=== PATIENT | male | born 1980 | race Caucasian/White ===

== ENCOUNTER 2016-12-06 06:21 | Emergency (ER) | payer BC, SELFPAY ==
[~2016-12-06 06:21] MED LIST: /ADVA50050; /MOXI40TA; /PANT40TA; DUONSOL; PRED10TA2; PRED20TA; ROBITUSSIN; VENTAER; ZYRT10TA6
[2016-12-06 07:03] LABS: BASO # 0.1 K/mm3 (0.0-0.2); BASO % 1.3 % (0.0-1.0); EOS # 0.1 K/mm3 (0.0-0.50); EOS % 1.9 % (0.0-3.0); LARGE UNSTAINED CELL # 0.1 K/mm3 (0.0-0.4); LARGE UNSTAINED CELL % 1.6 % (0.0-4.0); LYMPH # 1.6 K/mm3 (1.5-4.5); LYMPH % 23.3 % (24.0-44.0); MEAN CORPUSCULAR HEMOGLOBIN 29.4 pg (27.0-33.0); MEAN CORPUSCULAR HGB CONC 32.5 g/dl (32.0-36.5); MEAN CORPUSCULAR VOLUME 90.7 fl (80.0-96.0); MONO # 0.3 K/mm3 (0.0-0.8); MONO % 4.3 % (0.0-5.0); NEUTROPHILS # 4.3 K/mm3 (1.8-7.7); NEUTROPHILS % 67.6 % (36.0-66.0); PLATELET COUNT, AUTOMATED 195 k/mm3 (150-450); RED CELL DISTRIBUTION WIDTH 13.2 % (11.5-14.5); WHITE BLOOD COUNT 6.4 K/mm3 (4.0-10.0)
[2016-12-06] MEDS ORDERED: dexameTHASONE 20 MG/5 ML VIAL (J1100) As Ordered ONE (07:13)
--- NOTE | 2016-12-06 07:20 | REP ---
Clinical: Acute shortness of breath . Comparison: 11/06/2009 . Technique: PA and lateral. Findings: The mediastinum and cardiac silhouette are normal. The lung monge are clear and without acute consolidation, effusion, or pneumothorax. The skeletal structures are intact and normal. Impression: 1. No acute cardiopulmonary process. Signed by Nicolás Daily MD 12/06/2016 07:11 A
[2016-12-06 07:23] LABS: ANION GAP 7 MEQ/L (8-16); BLOOD UREA NITROGEN 18 MG/DL (7-18); CALCIUM LEVEL 8.5 MG/DL (8.5-10.1); CARBON DIOXIDE LEVEL 29 MEQ/L (21-32); CHLORIDE LEVEL 107 MEQ/L (98-107); CREATININE FOR GFR 0.99 MG/DL (0.70-1.30); GLOMERULAR FILTRATION RATE > 60.0 (>60); GLUCOSE, FASTING 98 MG/DL (70-105); POTASSIUM SERUM 3.6 MEQ/L (3.5-5.1); SODIUM LEVEL 143 MEQ/L (136-145)
[2016-12-06] MEDS ORDERED: IPRATROPIUM 0.5MG/ALBUTEROL 2.5MG INH SOL UD 3ML (DUONEB)(J7620) As Ordered ONE (08:02)
--- NOTE | 2016-12-06 09:49 | EDDOCDS ---
Physician Documentation [facility] Name: Kemal Lai Age: 36 yrs Sex: Male : 1980 Arrival Date: 12/06/2016 Time: 06:21 Bed 8 Private MD: Mohan Bardales Disposition: 12/06/16 09:28 Discharged to Home/Self Care. Impression: Mild intermittent asthma with (acute) exacerbation. - Condition is Stable. - Discharge Instructions: Asthma, Adult, Asthma, Acute Bronchospasm. - Prescriptions for Zithromax Z- Benjamin 250 mg Oral Tablet - take 1 tablet by ORAL route as directed for 5 days Day 1- take two tablets once. Day 2, 3, 4 , 5 take one tablet once daily.; 6 tablet. - Medication Reconciliation, Work Release Form - 2 day, Local Pharmacy Hours form. - Follow up: Mohan Bardales; When: Tomorrow; Reason: Recheck today's complaints. - Problem is an acute exacerbation. - Symptoms have improved. Historical: - Allergies: No known drug Allergies; - Home Meds: 1. ipratropium-albuterol 0.5 mg-3 mg(2.5 mg base)/3 mL Inhl nebu as needed 2. Ventolin Rotahaler/Rotacaps 200 mcg Inhl CpDv 3. Protonix 20 mg Oral TbEC as needed - PMHx: Asthma; Lupus; GERD; - PSHx: Vasectomy; - Social history: Smoking status: Patient states was never smoker of tobacco. No barriers to communication noted, The patient speaks fluent Australian, Speaks appropriately for age. - Family history: Not pertinent. - : The pt / caregiver states he / she is not on anticoagulants. Home medication list is obtained from the patient. - Exposure Risk Screening:: None identified. Vital Signs: 12/06 06:26 BP 129 / 72; Pulse 81; Resp 24; Temp 97.3(TE); Pulse Ox 95% on R/A; Weight 113.4 kg / js15 250 lbs; Height 5 ft. 10 in. (177.80 cm); 09:48 BP 129 / 59; Pulse 79; Resp 18; Temp 97.5(O); Pulse Ox 95% on R/A; Pain 0/10; hs1 06:26 Body Mass Index 35.87 (113.40 kg, 177.80 cm) js15 MDM: 06:47 IV Saline Lock ordered. cs11 06:47 Dexamethasone 12 mg IV at bolus once ordered. cs11 06:47 Albuterol-Ipratropium 3 ml Inhalation once ordered. cs11 06:47 Call Respiratory ordered. cs11 06:47 -Blood Culture (Adults Only), peripheral from different site, or from device/port/PICC cs11 etc. if present ordered. 06:47 Financial registration complete. hs2 06:47 [facility] Payment Agreement was scanned into [employer] and attached to record. hs2 06:47 Chest, 2 View (pa\E\lat) Ordered. EDMS 06:48 CBC with Diff Ordered. EDMS 06:48 MED Profile Ordered. EDMS 06:48 -Blood Culture Ordered. EDMS 06:54 -Blood Culture (Adults Only), peripheral from different site, or from device/port/PICC tmm1 etc. if present complete. 06:55 BLOOD CULTURES Ordered. EDMS 06:55 Call Respiratory complete. tmm1 07:09 CBC with Diff Reviewed. sd1 07:42 MED Profile Reviewed. sd1 07:42 Chest, 2 View (pa\E\lat) Reviewed. sd1 08:17 Misc. Nursing Order ordered. sd1 Administered Medications: 07:33 Drug: Dexamethasone 12 mg [dexamethasone 4 mg/mL injection solution] Route: IV; Rate: hs1 bolus; Site: left antecubital; 08:09 Drug: Albuterol-Ipratropium 3 ml [ipratropium-albuterol 0.5 mg-3 mg(2.5 mg base)/3 mL cs15 nebulization soln (3 mL)] Route: Inhalation; Signatures: Dispatcher [employer] EDFL Maura Colindres MD MD sd1 Sadie Cisneros RN RN hs1 Justin Yoon DO DO cs11 Angelique Collado, COMPOSING MACHINE OPERATOR COMPOSING MACHINE OPERATOR tmm1 Chrissy Gardiner,JIAN RN js15 Dary Almaraz, Reg Reg hs2 Trung Desir RT cs15 The chart was reviewed and I authenticate all verbal orders and agree with the evaluation and treatment provided.Attachments: 06:47 [facility] Payment Agreement hs2 MTDD
--- NOTE | 2016-12-06 09:49 | EDDOCDS ---
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 Adult Sepsis Screening: The patient does not have new or worsening altered mentation. Patient has a respiratory rate of greater than or equal to 22 (1 point). Systolic blood pressure is greater than 100. Patient has a qSOFA score of 1- Negative Sepsis Screen. Suicide/Homicide risk assessment- the patient denies having any suicidal and/or homicidal ideations and does not present with any other emotional, behavioral or mental health complaints. Status: Patient is not a banking services clerk or dependent. Transition of care: patient was not received from another setting of care. 06:27 Acuity: JENIFER Level 3 15 06:27 Method Of Arrival: Walkin/Carried/Asstd 15 Triage Assessment: 06:30 General: Appears uncomfortable. Pain: Aggravated by breathing. HIV screening NA for js15 this visit Offered previously. Respiratory: Onset: The symptoms/episode began/occurred 0000 Prior to arrival, Airway is patent Respiratory effort is even, unlabored, Respiratory pattern is regular, symmetrical. Derm: Skin is pink, warm & dry. Historical: - Allergies: No known drug Allergies; - Home Meds: 1. ipratropium-albuterol 0.5 mg-3 mg(2.5 mg base)/3 mL Inhl nebu as needed 2. Ventolin Rotahaler/Rotacaps 200 mcg Inhl CpDv 3. Protonix 20 mg Oral TbEC as needed - PMHx: Asthma; Lupus; GERD; - PSHx: Vasectomy; - Social history: Smoking status: Patient states was never smoker of tobacco. No barriers to communication noted, The patient speaks fluent Maori, Speaks appropriately for age. - Family history: Not pertinent. - : The pt / caregiver states he / she is not on anticoagulants. Home medication list is obtained from the patient. - Exposure Risk Screening:: None identified. Screenin:53 Screening information is obtained from the patient. Fall risk: No risks identified. hs1 Assistance ADL's: requires no assistance with activities of daily living. Abuse/DV Screen: The patient / caregiver reports he/she is: not in a situation that causes fear, pain or injury. Nutritional screening: No deficits noted. Advance Directives: There is no active DNR order. home support is adequate. Assessment: 06:39 General: Appears uncomfortable. Neurological: Level of Consciousness is awake, alert, nn1 obeys commands. Cardiovascular: Capillary refill < 3 seconds. Respiratory: Airway is patent Respiratory effort is even, unlabored, Respiratory pattern is regular, symmetrical, Breath sounds are diminished bilaterally. Reports shortness of breath since 0000. Reports pain with deep inspiration, pain is diffuse throughout chest and back. cough that is. Derm: Skin is pink, warm & dry. 06:55 General: Patient reports cold symptoms x 2 weeks including cough, congestion and body nn1 aches. Patient seen at urgent care at that time, given antibiotics with no relief. . 07:15 General: Appears in no apparent distress, Behavior is appropriate for age, cooperative. hs1 Neurological: Level of Consciousness is awake, alert, obeys commands. Cardiovascular: Rhythm is sinus rhythm No ectopy. Respiratory: Respiratory pattern is. Respiratory: Airway is patent Breath sounds are diminished bilaterally. Breath sounds with wheezes bilaterally. Derm: Skin is pink, warm & dry. 08:45 General: Ambulated patient around hallway monitoring SPO2. Patient sats dropped down to hs1 90% at lowest and patient states he feels slightly SOB and that he feels "crackling and popping and the inflammation" in his chest when he walked. . Respiratory: Airway is patent Respiratory effort is even, unlabored, Respiratory pattern is regular, symmetrical. 09:47 Reassessment: Patient appears in no apparent distress at this time. Patient denies pain hs1 at this time. Patient states feeling better. Patient states symptoms have improved. Respiratory: No deficits noted. Airway is patent Respiratory effort is even, unlabored, Respiratory pattern is regular, symmetrical, Breath sounds are diminished bilaterally. Derm: Skin is pink, warm & dry. normal. Vital Signs: 06:26 BP 129 / 72; Pulse 81; Resp 24; Temp 97.3(TE); Pulse Ox 95% on R/A; Weight 113.4 kg; js15 Height 5 ft. 10 in. (177.80 cm); 09:48 BP 129 / 59; Pulse 79; Resp 18; Temp 97.5(O); Pulse Ox 95% on R/A; Pain 0/10; hs1 06:26 Body Mass Index 35.87 (113.40 kg, 177.80 cm) js15 Vitals: 06:26 Log In Time: December 06, 2016 at 06:21. js15 ED Course: 06:22 Patient visited by Kemal Atkins Reg. pm4 06:22 Mohan Bardales is Private Physician. pm4 06:22 Patient moved to Waiting pm4 06:29 Triage Initiated js15 06:32 Patient moved to 8 js15 06:36 Justin Yoon DO is Attending Physician. cs11 06:36 Patient visited by Justin Yoon DO. cs11 06:47 [facility] Payment Agreement was scanned into [employer] and attached to record. hs2 06:52 Patient moved to Radiology marysol 06:55 MED Profile Sent. nn1 06:55 CBC with Diff Sent. nn1 06:55 -Blood Culture Sent. nn1 06:56 Inserted saline lock: 20 gauge in left antecubital area and blood collected. The nn1 patient tolerated the procedure well. Labs/Blood culture drawn. 06:58 Attending Physician role handed off by Justin Yoon DO sd1 06:58 Maura Colindres MD is Attending Physician. sd1 06:59 Patient moved to 8 marysol 07:19 Patient visited by Vincenzo Dumont RN. mlb1 07:33 Chest, 2 View (pa\\E\\lat) Returned. EDMS 07:33 BLOOD CULTURES Sent. hs1 07:52 Patient visited by Sadie Cisneros RN. hs1 07:53 The patient / caregiver is instructed regarding the plan of care and ED course. hs1 08:32 Patient visited by Sadie Cisneros RN. hs1 09:28 Mohan Bardales is Referral Physician. sd1 09:47 Discontinued IV lock intact, bleeding controlled, pressure dressing applied, No hs1 redness/swelling at site. No procedures done that require assistance. Administered Medications: 07:33 Drug: Dexamethasone 12 mg [dexamethasone 4 mg/mL injection solution] Route: IV; Rate: hs1 bolus; Site: left antecubital; 08:09 Drug: Albuterol-Ipratropium 3 ml [ipratropium-albuterol 0.5 mg-3 mg(2.5 mg base)/3 mL cs15 nebulization soln (3 mL)] Route: Inhalation; RT: 08:10 Initial Med Neb Given as ordered. Respiratory: Respiratory effort is unlabored, cs15 Respiratory pattern is regular Breath sounds with crackles bilaterally. Reports he feels like he can't get the air out very well which is suggestive of air trapping. He feels very inflammed. 08:24 O2 via nasal cannula \\T\\ 2L/min. cs15 Order Results: Lab Order: CBC with Diff; SPEC'M 12/06/16 06:53 Test: WHITE BLOOD COUNT; Value: 6.4; Range: 4.0-10.0; Units: K/mm3; Status: F Test: RED BLOOD COUNT; Value: 4.94; Range: 4.30-6.10; Units: M/mm3; Status: F Test: HEMOGLOBIN; Value: 14.5; Range: 14.0-18.0; Units: g/dl; Status: F Test: HEMATOCRIT; Value: 44.8; Range: 42.0-52.0; Units: %; Status: F Test: MEAN CORPUSCULAR VOLUME; Value: 90.7; Range: 80.0-96.0; Units: fl; Status: F Test: MEAN CORPUSCULAR HEMOGLOBIN; Value: 29.4; Range: 27.0-33.0; Units: pg; Status: F Test: MEAN CORPUSCULAR HGB CONC; Value: 32.5; Range: 32.0-36.5; Units: g/dl; Status: F Test: RED CELL DISTRIBUTION WIDTH; Value: 13.2; Range: 11.5-14.5; Units: %; Status: F Test: PLATELET COUNT, AUTOMATED; Value: 195; Range: 150-450; Units: k/mm3; Status: F Test: NEUTROPHILS %; Value: 67.6; Range: 36.0-66.0; Abnormal: Above high normal; Units: %; Status: F Test: LYMPH %; Value: 23.3; Range: 24.0-44.0; Abnormal: Below low normal; Units: %; Status: F Test: MONO %; Value: 4.3; Range: 0.0-5.0; Units: %; Status: F Test: EOS %; Value: 1.9; Range: 0.0-3.0; Units: %; Status: F Test: BASO %; Value: 1.3; Range: 0.0-1.0; Abnormal: Above high normal; Units: %; Status: F Test: LARGE UNSTAINED CELL %; Value: 1.6; Range: 0.0-4.0; Units: %; Status: F Test: NEUTROPHILS #; Value: 4.3; Range: 1.8-7.7; Units: K/mm3; Status: F Test: LYMPH #; Value: 1.6; Range: 1.5-4.5; Units: K/mm3; Status: F Test: MONO #; Value: 0.3; Range: 0.0-0.8; Units: K/mm3; Status: F Test: EOS #; Value: 0.1; Range: 0.0-0.50; Units: K/mm3; Status: F Test: BASO #; Value: 0.1; Range: 0.0-0.2; Units: K/mm3; Status: F Test: LARGE UNSTAINED CELL #; Value: 0.1; Range: 0.0-0.4; Units: K/mm3; Status: F Lab Order: [facility] Profile; SPEC'M 12/06/16 06:52 Test: GLUCOSE, FASTING; Value: 98; Range: 70-105; Units: MG/DL; Status: F Test: BLOOD UREA NITROGEN; Value: 18; Range: 7-18; Units: MG/DL; Status: F Test: CREATININE FOR GFR; Value: 0.99; Range: 0.70-1.30; Units: MG/DL; Status: F Test: GLOMERULAR FILTRATION RATE; Value: > 60.0; Range: >60; Status: F Test: SODIUM LEVEL; Value: 143; Range: 136-145; Units: MEQ/L; Status: F Test: POTASSIUM SERUM; Value: 3.6; Range: 3.5-5.1; Units: MEQ/L; Status: F Test: CHLORIDE LEVEL; Value: 107; Range: 98-107; Units: MEQ/L; Status: F Test: CARBON DIOXIDE LEVEL; Value: 29; Range: 21-32; Units: MEQ/L; Status: F Test: ANION GAP; Value: 7; Range: 8-16; Abnormal: Below low normal; Units: MEQ/L; Status: F Test: CALCIUM LEVEL; Value: 8.5; Range: 8.5-10.1; Units: MG/DL; Status: F Test Note: ; Units are mL/min/1.73 m2 Chronic Kidney Disease Staging per NKF: Stage I & II GFR >=60 Normal to Mildly Decreased Stage III GFR 30-59 Moderately Decreased Stage IV GFR 15-29 Severely Decreased Stage V GFR <15 Very Little GFR Left ESRD GFR <15 on PRINCIPAL ARCHAEOLOGIST Radiology Order: Chest, 2 View (pa\\E\\lat) Test: Chest, 2 View (pa\\E\\lat) REASON FOR EXAMINATION: Shortness of Breath; Clinical: Acute shortness of breath .; ; Comparison: 11/06/2009 .; ; Technique: PA and lateral.; ; Findings:; The mediastinum and cardiac silhouette are normal. The lung monge are clear and; without acute consolidation, effusion, or pneumothorax. The skeletal structures; are intact and normal.; ; Impression:; 1. No acute cardiopulmonary process.; ; ; Signed by; Nicolás Daily MD 12/06/2016 07:11 A; Outcome: 09:28 Discharge ordered by Provider. sd1 09:47 Discharge Assessment: Patient awake, alert and oriented x 3. No cognitive and/or hs1 functional deficits noted. Patient verbalized understanding of disposition instructions. patient administered narcotics - no. The following High Risk Discharge criteria are identified: None. Discharged to home ambulatory. Condition: improved. Discharge instructions given to patient, Instructed on discharge instructions, follow up and referral plans. medication usage, Demonstrated understanding of instructions, medications, Pt was receptive of discharge instructions/ teaching. Prescriptions given X 1, Work note provided to patient. No special radiology studies were completed. Property sent home with patient. 09:48 Patient left the ED. hs1 Signatures: Dispatcher [employer] EDMS Maura Colindres MD MD sd1 Teo Rosales Michael B RN RN mlb1 Sadie Cisneros RN RN hs1 Justin Yoon DO DO cs11 Chrissy Gardiner,RN RN js15 Jorge Reeves,RN RN nn1 Trung Desir,RT RT cs15 Dary Almaraz, Reg Reg hs2 Kemal Atkins, Reg Reg pm4 MTDD
--- NOTE | 2016-12-08 10:50 | EDDOCDS ---
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 Adult Sepsis Screening: The patient does not have new or worsening altered mentation. Patient has a respiratory rate of greater than or equal to 22 (1 point). Systolic blood pressure is greater than 100. Patient has a qSOFA score of 1- Negative Sepsis Screen. Suicide/Homicide risk assessment- the patient denies having any suicidal and/or homicidal ideations and does not present with any other emotional, behavioral or mental health complaints. Status: Patient is not a service shop foreman or dependent. Transition of care: patient was not received from another setting of care. 06:27 Acuity: JENIFER Level 3 15 06:27 Method Of Arrival: Walkin/Carried/Asstd 15 Triage Assessment: 06:30 General: Appears uncomfortable. Pain: Aggravated by breathing. HIV screening NA for js15 this visit Offered previously. Respiratory: Onset: The symptoms/episode began/occurred 0000 Prior to arrival, Airway is patent Respiratory effort is even, unlabored, Respiratory pattern is regular, symmetrical. Derm: Skin is pink, warm & dry. Historical: - Allergies: No known drug Allergies; - Home Meds: 1. ipratropium-albuterol 0.5 mg-3 mg(2.5 mg base)/3 mL Inhl nebu as needed 2. Ventolin Rotahaler/Rotacaps 200 mcg Inhl CpDv 3. Protonix 20 mg Oral TbEC as needed - PMHx: Asthma; Lupus; GERD; - PSHx: Vasectomy; - Social history: Smoking status: Patient states was never smoker of tobacco. No barriers to communication noted, The patient speaks fluent Tajik, Speaks appropriately for age. - Family history: Not pertinent. - : The pt / caregiver states he / she is not on anticoagulants. Home medication list is obtained from the patient. - Exposure Risk Screening:: None identified. Screenin:53 Screening information is obtained from the patient. Fall risk: No risks identified. hs1 Assistance ADL's: requires no assistance with activities of daily living. Abuse/DV Screen: The patient / caregiver reports he/she is: not in a situation that causes fear, pain or injury. Nutritional screening: No deficits noted. Advance Directives: There is no active DNR order. home support is adequate. Assessment: 06:39 General: Appears uncomfortable. Neurological: Level of Consciousness is awake, alert, nn1 obeys commands. Cardiovascular: Capillary refill < 3 seconds. Respiratory: Airway is patent Respiratory effort is even, unlabored, Respiratory pattern is regular, symmetrical, Breath sounds are diminished bilaterally. Reports shortness of breath since 0000. Reports pain with deep inspiration, pain is diffuse throughout chest and back. cough that is. Derm: Skin is pink, warm & dry. 06:55 General: Patient reports cold symptoms x 2 weeks including cough, congestion and body nn1 aches. Patient seen at urgent care at that time, given antibiotics with no relief. . 07:15 General: Appears in no apparent distress, Behavior is appropriate for age, cooperative. hs1 Neurological: Level of Consciousness is awake, alert, obeys commands. Cardiovascular: Rhythm is sinus rhythm No ectopy. Respiratory: Respiratory pattern is. Respiratory: Airway is patent Breath sounds are diminished bilaterally. Breath sounds with wheezes bilaterally. Derm: Skin is pink, warm & dry. 08:45 General: Ambulated patient around hallway monitoring SPO2. Patient sats dropped down to hs1 90% at lowest and patient states he feels slightly SOB and that he feels "crackling and popping and the inflammation" in his chest when he walked. . Respiratory: Airway is patent Respiratory effort is even, unlabored, Respiratory pattern is regular, symmetrical. 09:47 Reassessment: Patient appears in no apparent distress at this time. Patient denies pain hs1 at this time. Patient states feeling better. Patient states symptoms have improved. Respiratory: No deficits noted. Airway is patent Respiratory effort is even, unlabored, Respiratory pattern is regular, symmetrical, Breath sounds are diminished bilaterally. Derm: Skin is pink, warm & dry. normal. Vital Signs: 06:26 BP 129 / 72; Pulse 81; Resp 24; Temp 97.3(TE); Pulse Ox 95% on R/A; Weight 113.4 kg; js15 Height 5 ft. 10 in. (177.80 cm); 09:48 BP 129 / 59; Pulse 79; Resp 18; Temp 97.5(O); Pulse Ox 95% on R/A; Pain 0/10; hs1 06:26 Body Mass Index 35.87 (113.40 kg, 177.80 cm) js15 Vitals: 06:26 Log In Time: December 06, 2016 at 06:21. js15 ED Course: 06:22 Patient visited by Kemal Atkins Reg. pm4 06:22 Mohan Bardales is Private Physician. pm4 06:22 Patient moved to Waiting pm4 06:29 Triage Initiated js15 06:32 Patient moved to 8 js15 06:36 Justin Yoon DO is Attending Physician. cs11 06:36 Patient visited by Justin Yoon DO. cs11 06:47 [facility] Payment Agreement was scanned into [employer] and attached to record. hs2 06:52 Patient moved to Radiology marysol 06:55 MED Profile Sent. nn1 06:55 CBC with Diff Sent. nn1 06:55 -Blood Culture Sent. nn1 06:56 Inserted saline lock: 20 gauge in left antecubital area and blood collected. The nn1 patient tolerated the procedure well. Labs/Blood culture drawn. 06:58 Attending Physician role handed off by Justin Yoon DO sd1 06:58 Maura Colindres MD is Attending Physician. sd1 06:59 Patient moved to 8 marysol 07:19 Patient visited by Vincenzo Dumont RN. mlb1 07:33 Chest, 2 View (pa\\E\\lat) Returned. EDMS 07:33 BLOOD CULTURES Sent. hs1 07:52 Patient visited by Sadie Cisneros RN. hs1 07:53 The patient / caregiver is instructed regarding the plan of care and ED course. hs1 08:32 Patient visited by Sadie Cisneros RN. hs1 09:28 Mohan Bardales is Referral Physician. sd1 09:47 Discontinued IV lock intact, bleeding controlled, pressure dressing applied, No hs1 redness/swelling at site. No procedures done that require assistance. 14:21 T-Sheet-- Draft Copy was scanned into [employer] and attached to record. gb Administered Medications: 07:33 Drug: Dexamethasone 12 mg [dexamethasone 4 mg/mL injection solution] Route: IV; Rate: hs1 bolus; Site: left antecubital; 08:09 Drug: Albuterol-Ipratropium 3 ml [ipratropium-albuterol 0.5 mg-3 mg(2.5 mg base)/3 mL cs15 nebulization soln (3 mL)] Route: Inhalation; RT: 08:10 Initial Med Neb Given as ordered. Respiratory: Respiratory effort is unlabored, cs15 Respiratory pattern is regular Breath sounds with crackles bilaterally. Reports he feels like he can't get the air out very well which is suggestive of air trapping. He feels very inflammed. 08:24 O2 via nasal cannula \\T\\ 2L/min. cs15 Order Results: Lab Order: -Blood Culture; SPEC'M 12/06/16 06:52 Test: BLOOD CULTURE; Value: No growth after 24 hours . All specimens observed; Status: F Test: BLOOD CULTURE; Value: for 5 days. Results final at that time.; Status: F Test: BLOOD CULTURE; Value: No Growth after 48 hours. All Specimens observed; Status: F Test: BLOOD CULTURE; Value: for 7 days. Results final at that time.; Status: F Lab Order: CBC with Diff; SPEC'M 12/06/16 06:53 Test: WHITE BLOOD COUNT; Value: 6.4; Range: 4.0-10.0; Units: K/mm3; Status: F Test: RED BLOOD COUNT; Value: 4.94; Range: 4.30-6.10; Units: M/mm3; Status: F Test: HEMOGLOBIN; Value: 14.5; Range: 14.0-18.0; Units: g/dl; Status: F Test: HEMATOCRIT; Value: 44.8; Range: 42.0-52.0; Units: %; Status: F Test: MEAN CORPUSCULAR VOLUME; Value: 90.7; Range: 80.0-96.0; Units: fl; Status: F Test: MEAN CORPUSCULAR HEMOGLOBIN; Value: 29.4; Range: 27.0-33.0; Units: pg; Status: F Test: MEAN CORPUSCULAR HGB CONC; Value: 32.5; Range: 32.0-36.5; Units: g/dl; Status: F Test: RED CELL DISTRIBUTION WIDTH; Value: 13.2; Range: 11.5-14.5; Units: %; Status: F Test: PLATELET COUNT, AUTOMATED; Value: 195; Range: 150-450; Units: k/mm3; Status: F Test: NEUTROPHILS %; Value: 67.6; Range: 36.0-66.0; Abnormal: Above high normal; Units: %; Status: F Test: LYMPH %; Value: 23.3; Range: 24.0-44.0; Abnormal: Below low normal; Units: %; Status: F Test: MONO %; Value: 4.3; Range: 0.0-5.0; Units: %; Status: F Test: EOS %; Value: 1.9; Range: 0.0-3.0; Units: %; Status: F Test: BASO %; Value: 1.3; Range: 0.0-1.0; Abnormal: Above high normal; Units: %; Status: F Test: LARGE UNSTAINED CELL %; Value: 1.6; Range: 0.0-4.0; Units: %; Status: F Test: NEUTROPHILS #; Value: 4.3; Range: 1.8-7.7; Units: K/mm3; Status: F Test: LYMPH #; Value: 1.6; Range: 1.5-4.5; Units: K/mm3; Status: F Test: MONO #; Value: 0.3; Range: 0.0-0.8; Units: K/mm3; Status: F Test: EOS #; Value: 0.1; Range: 0.0-0.50; Units: K/mm3; Status: F Test: BASO #; Value: 0.1; Range: 0.0-0.2; Units: K/mm3; Status: F Test: LARGE UNSTAINED CELL #; Value: 0.1; Range: 0.0-0.4; Units: K/mm3; Status: F Lab Order: MED Profile; SPEC'M 12/06/16 06:52 Test: GLUCOSE, FASTING; Value: 98; Range: 70-105; Units: MG/DL; Status: F Test: BLOOD UREA NITROGEN; Value: 18; Range: 7-18; Units: MG/DL; Status: F Test: CREATININE FOR GFR; Value: 0.99; Range: 0.70-1.30; Units: MG/DL; Status: F Test: GLOMERULAR FILTRATION RATE; Value: > 60.0; Range: >60; Status: F Test: SODIUM LEVEL; Value: 143; Range: 136-145; Units: MEQ/L; Status: F Test: POTASSIUM SERUM; Value: 3.6; Range: 3.5-5.1; Units: MEQ/L; Status: F Test: CHLORIDE LEVEL; Value: 107; Range: 98-107; Units: MEQ/L; Status: F Test: CARBON DIOXIDE LEVEL; Value: 29; Range: 21-32; Units: MEQ/L; Status: F Test: ANION GAP; Value: 7; Range: 8-16; Abnormal: Below low normal; Units: MEQ/L; Status: F Test: CALCIUM LEVEL; Value: 8.5; Range: 8.5-10.1; Units: MG/DL; Status: F Test Note: ; Units are mL/min/1.73 m2 Chronic Kidney Disease Staging per NKF: Stage I & II GFR >=60 Normal to Mildly Decreased Stage III GFR 30-59 Moderately Decreased Stage IV GFR 15-29 Severely Decreased Stage V GFR <15 Very Little GFR Left ESRD GFR <15 on STRUCTURAL STEEL FITTER Lab Order: BLOOD CULTURES; SPEC'M 12/06/16 07:33 Test: BLOOD CULTURE; Value: No growth after 24 hours . All specimens observed; Status: F Test: BLOOD CULTURE; Value: for 5 days. Results final at that time.; Status: F Test: BLOOD CULTURE; Value: No Growth after 48 hours. All Specimens observed; Status: F Test: BLOOD CULTURE; Value: for 7 days. Results final at that time.; Status: F Radiology Order: Chest, 2 View (pa\\E\\lat) Test: Chest, 2 View (pa\\E\\lat) REASON FOR EXAMINATION: Shortness of Breath; Clinical: Acute shortness of breath .; ; Comparison: 11/06/2009 .; ; Technique: PA and lateral.; ; Findings:; The mediastinum and cardiac silhouette are normal. The lung monge are clear and; without acute consolidation, effusion, or pneumothorax. The skeletal structures; are intact and normal.; ; Impression:; 1. No acute cardiopulmonary process.; ; ; Signed by; Nicolás Daily MD 12/06/2016 07:11 A; Outcome: 09:28 Discharge ordered by Provider. sd1 09:47 Discharge Assessment: Patient awake, alert and oriented x 3. No cognitive and/or hs1 functional deficits noted. Patient verbalized understanding of disposition instructions. patient administered narcotics - no. The following High Risk Discharge criteria are identified: None. Discharged to home ambulatory. Condition: improved. Discharge instructions given to patient, Instructed on discharge instructions, follow up and referral plans. medication usage, Demonstrated understanding of instructions, medications, Pt was receptive of discharge instructions/ teaching. Prescriptions given X 1, Work note provided to patient. No special radiology studies were completed. Property sent home with patient. 09:48 Patient left the ED. hs1 Signatures: Dispatcher [employer] EDMS Maura Colindres MD MD sd1 Teo Rosales Gloria, Reg Reg gb Vincenzo Dumont RN RN mlb1 Sadie Cisneros RN RN hs1 Justin Yoon, DO cs11 Chrissy Gardiner,RN RN js15 Jorge Reeves,RN RN nn1 Trung Desir,RT RT cs15 Dary Almaraz, Reg Reg hs2 Kemal Atkins, Reg Reg pm4 Chart Complete MTDD
--- NOTE | 2016-12-08 10:50 | EDDOCDS ---
Physician Documentation [facility] Name: Kemal Lai Age: 36 yrs Sex: Male : 1980 Arrival Date: 12/06/2016 Time: 06:21 Bed 8 Private MD: Mohan Bardales Disposition: 12/06/16 09:28 Discharged to Home/Self Care. Impression: Mild intermittent asthma with (acute) exacerbation. - Condition is Stable. - Discharge Instructions: Asthma, Adult, Asthma, Acute Bronchospasm. - Prescriptions for Zithromax Z- Benjamin 250 mg Oral Tablet - take 1 tablet by ORAL route as directed for 5 days Day 1- take two tablets once. Day 2, 3, 4 , 5 take one tablet once daily.; 6 tablet. - Medication Reconciliation, Work Release Form - 2 day, Local Pharmacy Hours form. - Follow up: Mohan Bardales; When: Tomorrow; Reason: Recheck today's complaints. - Problem is an acute exacerbation. - Symptoms have improved. Historical: - Allergies: No known drug Allergies; - Home Meds: 1. ipratropium-albuterol 0.5 mg-3 mg(2.5 mg base)/3 mL Inhl nebu as needed 2. Ventolin Rotahaler/Rotacaps 200 mcg Inhl CpDv 3. Protonix 20 mg Oral TbEC as needed - PMHx: Asthma; Lupus; GERD; - PSHx: Vasectomy; - Social history: Smoking status: Patient states was never smoker of tobacco. No barriers to communication noted, The patient speaks fluent Tajik, Speaks appropriately for age. - Family history: Not pertinent. - : The pt / caregiver states he / she is not on anticoagulants. Home medication list is obtained from the patient. - Exposure Risk Screening:: None identified. Vital Signs: 12/06 06:26 BP 129 / 72; Pulse 81; Resp 24; Temp 97.3(TE); Pulse Ox 95% on R/A; Weight 113.4 kg / js15 250 lbs; Height 5 ft. 10 in. (177.80 cm); 09:48 BP 129 / 59; Pulse 79; Resp 18; Temp 97.5(O); Pulse Ox 95% on R/A; Pain 0/10; hs1 06:26 Body Mass Index 35.87 (113.40 kg, 177.80 cm) js15 MDM: 06:47 IV Saline Lock ordered. cs11 06:47 Dexamethasone 12 mg IV at bolus once ordered. cs11 06:47 Albuterol-Ipratropium 3 ml Inhalation once ordered. cs11 06:47 Call Respiratory ordered. cs11 06:47 -Blood Culture (Adults Only), peripheral from different site, or from device/port/PICC cs11 etc. if present ordered. 06:47 Financial registration complete. hs2 06:47 [facility] Payment Agreement was scanned into [employer] and attached to record. hs2 06:47 Chest, 2 View (pa\E\lat) Ordered. EDMS 06:48 CBC with Diff Ordered. EDMS 06:48 MED Profile Ordered. EDMS 06:48 -Blood Culture Ordered. EDMS 06:54 -Blood Culture (Adults Only), peripheral from different site, or from device/port/PICC tmm1 etc. if present complete. 06:55 BLOOD CULTURES Ordered. EDMS 06:55 Call Respiratory complete. tmm1 07:09 CBC with Diff Reviewed. sd1 07:42 MED Profile Reviewed. sd1 07:42 Chest, 2 View (pa\E\lat) Reviewed. sd1 08:17 Misc. Nursing Order ordered. sd1 14:21 T-Sheet-- Draft Copy was scanned into [employer] and attached to record. gb Administered Medications: 07:33 Drug: Dexamethasone 12 mg [dexamethasone 4 mg/mL injection solution] Route: IV; Rate: hs1 bolus; Site: left antecubital; 08:09 Drug: Albuterol-Ipratropium 3 ml [ipratropium-albuterol 0.5 mg-3 mg(2.5 mg base)/3 mL cs15 nebulization soln (3 mL)] Route: Inhalation; Signatures: Dispatcher [employer] EDTX Maura Colindres MD MD sd1 Elen Layton, Reg Reg gb Sadie Cisneros RN RN hs1 Justin Yoon DO DO cs11 McLmatt Angelique, MS SQL DEVELOPER MS SQL DEVELOPER tmm1 Chrissy Gardiner RN RN js15 Dary Almaraz, Reg Reg hs2 Trung Desir RT cs15 The chart was reviewed and I authenticate all verbal orders and agree with the evaluation and treatment provided.Attachments: 06:47 [facility] Payment Agreement hs2 14:21 T-Sheet-- Draft Copy gb Chart Complete MTDD
--- NOTE | 2016-12-08 10:50 | EDDOCDS ---
Physician Documentation [facility] Name: Kemal Lai Age: 36 yrs Sex: Male : 1980 Arrival Date: 12/06/2016 Time: 06:21 Bed 8 Private MD: Mohan Bardales Disposition: 12/06/16 09:28 Discharged to Home/Self Care. Impression: Mild intermittent asthma with (acute) exacerbation. - Condition is Stable. - Discharge Instructions: Asthma, Adult, Asthma, Acute Bronchospasm. - Prescriptions for Zithromax Z- Benjamin 250 mg Oral Tablet - take 1 tablet by ORAL route as directed for 5 days Day 1- take two tablets once. Day 2, 3, 4 , 5 take one tablet once daily.; 6 tablet. - Medication Reconciliation, Work Release Form - 2 day, Local Pharmacy Hours form. - Follow up: Mohan Bardales; When: Tomorrow; Reason: Recheck today's complaints. - Problem is an acute exacerbation. - Symptoms have improved. Historical: - Allergies: No known drug Allergies; - Home Meds: 1. ipratropium-albuterol 0.5 mg-3 mg(2.5 mg base)/3 mL Inhl nebu as needed 2. Ventolin Rotahaler/Rotacaps 200 mcg Inhl CpDv 3. Protonix 20 mg Oral TbEC as needed - PMHx: Asthma; Lupus; GERD; - PSHx: Vasectomy; - Social history: Smoking status: Patient states was never smoker of tobacco. No barriers to communication noted, The patient speaks fluent Martiniquais, Speaks appropriately for age. - Family history: Not pertinent. - : The pt / caregiver states he / she is not on anticoagulants. Home medication list is obtained from the patient. - Exposure Risk Screening:: None identified. Vital Signs: 12/06 06:26 BP 129 / 72; Pulse 81; Resp 24; Temp 97.3(TE); Pulse Ox 95% on R/A; Weight 113.4 kg / js15 250 lbs; Height 5 ft. 10 in. (177.80 cm); 09:48 BP 129 / 59; Pulse 79; Resp 18; Temp 97.5(O); Pulse Ox 95% on R/A; Pain 0/10; hs1 06:26 Body Mass Index 35.87 (113.40 kg, 177.80 cm) js15 MDM: 06:47 IV Saline Lock ordered. cs11 06:47 Dexamethasone 12 mg IV at bolus once ordered. cs11 06:47 Albuterol-Ipratropium 3 ml Inhalation once ordered. cs11 06:47 Call Respiratory ordered. cs11 06:47 -Blood Culture (Adults Only), peripheral from different site, or from device/port/PICC cs11 etc. if present ordered. 06:47 Financial registration complete. hs2 06:47 [facility] Payment Agreement was scanned into [employer] and attached to record. hs2 06:47 Chest, 2 View (pa\E\lat) Ordered. EDMS 06:48 CBC with Diff Ordered. EDMS 06:48 MED Profile Ordered. EDMS 06:48 -Blood Culture Ordered. EDMS 06:54 -Blood Culture (Adults Only), peripheral from different site, or from device/port/PICC tmm1 etc. if present complete. 06:55 BLOOD CULTURES Ordered. EDMS 06:55 Call Respiratory complete. tmm1 07:09 CBC with Diff Reviewed. sd1 07:42 MED Profile Reviewed. sd1 07:42 Chest, 2 View (pa\E\lat) Reviewed. sd1 08:17 Misc. Nursing Order ordered. sd1 14:21 T-Sheet-- Draft Copy was scanned into [employer] and attached to record. gb Administered Medications: 07:33 Drug: Dexamethasone 12 mg [dexamethasone 4 mg/mL injection solution] Route: IV; Rate: hs1 bolus; Site: left antecubital; 08:09 Drug: Albuterol-Ipratropium 3 ml [ipratropium-albuterol 0.5 mg-3 mg(2.5 mg base)/3 mL cs15 nebulization soln (3 mL)] Route: Inhalation; Signatures: Dispatcher [employer] EDMI Maura Colindres MD MD sd1 Elen Layton, Reg Reg gb Sadie Cisneros RN RN hs1 Justin Yoon DO DO cs11 McLmatt Angelique, CHECKER STOCKER CHECKER STOCKER tmm1 Chrissy Gardiner RN RN js15 Dary Almaraz, Reg Reg hs2 Trung Desir RT cs15 The chart was reviewed and I authenticate all verbal orders and agree with the evaluation and treatment provided.Attachments: 06:47 [facility] Payment Agreement hs2 14:21 T-Sheet-- Draft Copy gb Chart Complete MTDD
== END 2016-12-06 09:48 | disposition home or self-care (01) ==
LOC: M ED 06:21
DX: J40 Bronchitis, not specified as acute or chronic (principal); J45.909 Unspecified asthma, uncomplicated; M32.9 Systemic lupus erythematosus, unspecified; K21.9 Gastro-esophageal reflux disease without esophagitis; Z79.899 Other long term (current) drug therapy
CPT/HCPCS: 36415; 71020; 80048; 85025; 87040; 94640; 96374; 99285; J1100

== ENCOUNTER 2017-02-21 10:52 | Emergency (ER) | payer SELFPAY ==
[~2017-02-21] VITALS: Ht 177.8 cm; Wt 108.9 kg
[2017-02-21 12:51] LABS: MEAN CORPUSCULAR HEMOGLOBIN 30.3 pg (27.0-33.0); MEAN CORPUSCULAR HGB CONC 33.3 g/dl (32.0-36.5); RED CELL DISTRIBUTION WIDTH 12.2 % (11.5-14.5); WHITE BLOOD COUNT 5.2 K/mm3 (4.0-10.0)
[2017-02-21 13:17] LABS: METHADONE URINE NEGATIVE (NEGATIVE)
[2017-02-21 13:22] LABS: ALBUMIN 4.4 GM/DL (3.2-5.2); ALBUMIN/GLOBULIN RATIO 1.47 (1.00-1.93); ALKALINE PHOSPHATASE 63 U/L (45-117); ALT/SGPT 54 U/L (12-78); ANION GAP 7 MEQ/L (8-16); AST/SGOT 33 U/L (15-37); BILIRUBIN,DIRECT 0.2 MG/DL (0.0-0.2); BILIRUBIN,TOTAL 0.8 MG/DL (0.2-1.0); BLOOD UREA NITROGEN 13 MG/DL (7-18); CALCIUM LEVEL 9.3 MG/DL (8.5-10.1); CARBON DIOXIDE LEVEL 30 MEQ/L (21-32); CHLORIDE LEVEL 106 MEQ/L (98-107); CREATININE FOR GFR 1.01 MG/DL (0.70-1.30); GLOMERULAR FILTRATION RATE > 60.0 (>60); GLUCOSE, FASTING 131 MG/DL (70-105); POTASSIUM SERUM 3.9 MEQ/L (3.5-5.1); SODIUM LEVEL 143 MEQ/L (136-145); TOTAL PROTEIN 7.4 GM/DL (6.4-8.2)
[2017-02-21 14:39] VITALS: BP 159/84
== END 2017-02-21 14:56 | disposition home or self-care (01) ==
LOC: M ED 12:57
DX: F32.9 Major depressive disorder, single episode, unspecified (principal); M32.9 Systemic lupus erythematosus, unspecified
CPT/HCPCS: 36415; 80048; 80076; 80306; 84443; 85027; 99285; G0480

== ENCOUNTER 2018-07-24 18:05 | Emergency (ER) | payer SELFPAY, BC ==
[2018-07-24 18:37] LABS: BASO % 0.3 % (0.0-1.0); EOS # 0.1 10^3/uL (0.0-0.50); EOS % 1.2 % (0.0-3.0); HEMATOCRIT 46.8 % (42.0-52.0); HEMOGLOBIN 15.7 g/dl (13.5-17.5); IMMATURE GRANULOCYTE % 0.3 % (0-3.0); LYMPH # 1.3 10^3/uL (1.5-4.5); LYMPH % 22.7 % (24.0-44.0); MEAN CORPUSCULAR HEMOGLOBIN 30.3 pg (27.0-33.0); MEAN CORPUSCULAR HGB CONC 33.5 g/dl (32.0-36.5); MEAN CORPUSCULAR VOLUME 90.3 fl (80.0-96.0); MONO # 0.4 10^3/uL (0.0-0.8); MONO % 7.7 % (0.0-5.0); NEUTROPHILS # 3.9 10^3/uL (1.8-7.7); NEUTROPHILS % 67.8 % (36.0-66.0); PLATELET COUNT, AUTOMATED 210 10^3/uL (150-450); RED BLOOD COUNT 5.18 10^6/uL (4.30-6.10); RED CELL DISTRIBUTION WIDTH 11.9 % (11.5-14.5); WHITE BLOOD COUNT 5.7 10^3/uL (4.0-10.0)
[2018-07-24] MEDS: MECLIZINE 25 MG TABLET PO (18:40)
[2018-07-24] MEDS: NS 1,000 ML IV (18:40)
[2018-07-24 18:43] LABS: BEDSIDE GLUCOSE 96 MG/DL (70-105)
[2018-07-24 19:43] LABS: ALBUMIN 4.3 GM/DL (3.2-5.2); ALBUMIN/GLOBULIN RATIO 1.34 (1.00-1.93); ALKALINE PHOSPHATASE 47 U/L (45-117); ALT/SGPT 29 U/L (12-78); ANION GAP 4 MEQ/L (8-16); AST/SGOT 26 U/L (7-37); BILIRUBIN,DIRECT 0.1 MG/DL (0.0-0.2); BILIRUBIN,TOTAL 0.7 MG/DL (0.2-1.0); BLOOD UREA NITROGEN 15 MG/DL (7-18); CALCIUM LEVEL 9.1 MG/DL (8.5-10.1); CARBON DIOXIDE LEVEL 30 MEQ/L (21-32); CHLORIDE LEVEL 107 MEQ/L (98-107); CPK CREATINE PHOSPHOKINASE 298 U/L (39-308); CREATININE FOR GFR 1.03 MG/DL (0.70-1.30); GLOMERULAR FILTRATION RATE > 60.0 (>60); GLUCOSE, FASTING 86 MG/DL (70-100); POTASSIUM SERUM 3.6 MEQ/L (3.5-5.1); SALICYLATE LEVEL < 1.7 MG/DL (5.0-30.0); SODIUM LEVEL 141 MEQ/L (136-145); THYROID STIMULATING HORMONE 0.891 uIU/ML (0.358-3.740); TOTAL PROTEIN 7.5 GM/DL (6.4-8.2); TROPONIN I < 0.02 NG/ML (< 0.10)
[2018-07-24 19:44] LABS: ACETAMINOPHEN LEVEL < 2.0 UG/ML (10.0-30.0)
== END 2018-07-24 20:09 | disposition home or self-care (01) ==
LOC: M ED 18:05
DX: H83.09 Labyrinthitis, unspecified ear (principal)
CPT/HCPCS: 71046

== ENCOUNTER → 2018-09-02 | Outpatient (REF) | payer SELFPAY, BC ==
[2018-09-02 23:52] LABS: CHLAMYDIA DNA AMPLIFICATION NEGATIVE (NEGATIVE); GC DNA AMPLIFICATION NEGATIVE (NEGATIVE)
== END ==
LOC: M LAB REF 18:07
DX: R30.0 Dysuria (principal)

== ENCOUNTER → 2022-09-15 | Outpatient (REF) | payer OTHER ==
[~2022-09-15] MED LIST changes: -/ADVA50050; -/MOXI40TA; -/PANT40TA; +ADVA1AER2; +AVEL1TAB2; +MECL1TAB31 PO; +PROT1TAB2
== END ==
LOC: M LAB REF 16:10
PROVIDERS: ATTEND Internal Medicine
DX: M25.50 Pain in unspecified joint (principal)